=== PATIENT | female | born 1965 | race Caucasian/White ===

== ENCOUNTER → 2016-10-10 | Outpatient (CLI) | payer OTHER ==
[~2016-10-10] MED LIST: CLARITIN 1010 MG/TAB PO; MOTRIN 800800 MG/TAB PO; PERCOCET 325 MG1 TA2 PO; PRILOSEC 20MG20 MG PO
[2016-10-10 12:08] LABS: PH 5 (5-8); SQUAMOUS EPITHELIAL 0-2 /hpf; URINE APPEARANCE Clear; URINE BACTERIA None Seen /hpf; URINE BILIRUBIN Negative (NEGATIVE); URINE BLOOD Negative (NEGATIVE); URINE COLOR Yellow; URINE GLUCOSE Negative (NEGATIVE); URINE KETONE Negative (NEGATIVE); URINE RBC 0-2 /hpf; URINE UROBILINOGEN Negative (NEGATIVE); URINE WBC 0-2 /hpf
[2016-10-10 12:11] LABS: BASO # 0.1 (0.0-0.2); BASO % 0.8 % (0.0-2.0); EOS # 0.2 (0.0-0.7); EOS % 2.4 % (0-4.0); GRAN # 4.7 (1.4-6.5); GRAN % 64.7 % (42.2-75.2); HEMATOCRIT 38.8 % (37.0-47.0); LYMPH # 1.9 (1.2-3.4); MEAN CELL VOLUME 79 fl (80.0-100.0); MEAN CORPUSCULAR HEMOGLOBIN 24 pg (27.0-31.0); MEAN CORPUSCULAR HGB CONC 31 g/dl (33.0-37.0); MEAN PLATELET VOLUME 11.5 fl (7.4-10.4); MONO # 0.4 (0.1-0.6); MONO % 5.8 % (1.7-9.3); PLATELET COUNT 272 K/mm3 (130-400); RED BLOOD COUNT 4.89 M/mm3 (4.10-5.30); REDCELL DISTRIBUTION WIDTH-CV 17.3 % (11.5-14.5); WHITE BLOOD COUNT 7.2 K/mm3 (4.8-10.8)
[2016-10-10 12:16] LABS: HEMOGLOBIN 11.9 g/dl (12.5-16.0)
[2016-10-10 12:45] LABS: ADJUSTED CALCIUM 8.9 mg/dL (8.4-10.2); ALBUMIN 4.3 gm/dL (3.5-5.0); BILIRUBIN,TOTAL 0.5 mg/dL (0.0-1.0); CALCIUM 9.1 mg/dL (8.4-10.2); CREATININE, serum 0.7 mg/dL (0.52-1.25); POTASSIUM 3.9 mmol/L (3.4-5.0); TOTAL PROTEIN 7.7 gm/dL (6.4-8.2)
[2016-10-10 13:13] LABS: THYROID STIMULATING HORMONE 1.85 uIU/mL (0.465-4.680)
== END ==
LOC: COL.LAB 10:00
PROVIDERS: Internal Medicine
DX: G47.33 Obstructive sleep apnea (adult) (pediatric) (principal); R35.0 Frequency of micturition

== ENCOUNTER → 2016-10-17 | Outpatient (CLI) | payer OTHER | LOC: COL.RAD 13:59 | DX: N83.201 Unspecified ovarian cyst, right side (principal); Z90.711 Acquired absence of uterus with remaining cervical stump ==

== ENCOUNTER → 2017-01-08 | Outpatient (CLI) | payer OTHER ==
[~2017-01-08] VITALS: Ht 170.2 cm; Wt 120.9 kg
[2017-01-08 15:30] VITALS: BP 160/100; PULSE 76
== END ==
LOC: LIGHT 09:21
DX: E66.01 Morbid (severe) obesity due to excess calories (principal); Z68.41 Body mass index [BMI] 40.0-44.9, adult; Z71.3 Dietary counseling and surveillance; I10 Essential (primary) hypertension; K21.9 Gastro-esophageal reflux disease without esophagitis

== ENCOUNTER 2017-01-18 06:56 | Day surgery (SDC) | payer OTHER ==
[~2017-01-18] VITALS: Ht 170.2 cm; Wt 121.7 kg
[2017-01-18 07:14] VITALS: BP 136/98; PULSE 76; TEMP 98.1
[2017-01-18 09:20] VITALS: BP 142/90; PULSE 76
[2017-01-18 09:30] VITALS: BP 137/90; PULSE 71
[2017-01-18 09:45] VITALS: BP 129/87; PULSE 75
[2017-01-18 10:00] VITALS: BP 122/89
[2017-01-18 12:57] VITALS: BP 135/87; PULSE 79
== END 2017-01-18 10:00 | disposition home or self-care (01) ==
LOC: SDCO 06:56
DX: K21.0 Gastro-esophageal reflux disease with esophagitis (principal); K63.5 Polyp of colon; D50.9 Iron deficiency anemia, unspecified; I10 Essential (primary) hypertension; K62.5 Hemorrhage of anus and rectum; Z90.710 Acquired absence of both cervix and uterus; Z90.49 Acquired absence of other specified parts of digestive tract; Z80.0 Family history of malignant neoplasm of digestive organs
CPT/HCPCS: J2250; J2405; J3010; J7030

== ENCOUNTER → 2017-01-21 | Outpatient (CLI) | payer OTHER ==
[~2017-01-21] VITALS: Ht 170.2 cm; Wt 120.9 kg
== END ==
LOC: LIGHT 14:40
DX: Z01.818 Encounter for other preprocedural examination (principal)

== ENCOUNTER → 2017-01-29 | Outpatient (CLI) | payer OTHER ==
[~2017-01-29] VITALS: Ht 170.2 cm; Wt 121.3 kg
[2017-01-29 14:47] VITALS: BP 150/96; PULSE 64
== END ==
LOC: LIGHT 14:04
DX: E66.01 Morbid (severe) obesity due to excess calories (principal); Z68.41 Body mass index [BMI] 40.0-44.9, adult; Z71.3 Dietary counseling and surveillance; I10 Essential (primary) hypertension; K21.9 Gastro-esophageal reflux disease without esophagitis

== ENCOUNTER → 2017-02-11 | Outpatient (CLI) | payer OTHER | LOC: LIGHT 14:47 | DX: Z01.818 Encounter for other preprocedural examination (principal) ==

== ENCOUNTER → 2017-02-26 | Outpatient (CLI) | payer OTHER ==
[~2017-02-26] VITALS: Ht 170.2 cm; Wt 119.7 kg
[2017-02-26 16:19] VITALS: BP 170/108; PULSE 68
== END ==
LOC: LIGHT 09:10
DX: E66.01 Morbid (severe) obesity due to excess calories (principal); Z68.41 Body mass index [BMI] 40.0-44.9, adult; Z71.3 Dietary counseling and surveillance; I10 Essential (primary) hypertension; K21.9 Gastro-esophageal reflux disease without esophagitis

== ENCOUNTER → 2017-04-30 | Outpatient (CLI) | payer OTHER | LOC: MC.RAD 14:47 | DX: Z12.31 Encounter for screening mammogram for malignant neoplasm of breast (principal) ==

== ENCOUNTER → 2017-07-02 | Outpatient (REF) | LOC: WSOH 15:52 → WSPT 15:52 | DX: Z51.89 Encounter for other specified aftercare (principal) ==

== ENCOUNTER → 2018-06-10 | Outpatient (CLI) | payer OTHER | LOC: MC.RAD 08:49 | DX: Z12.31 Encounter for screening mammogram for malignant neoplasm of breast (principal) ==

== ENCOUNTER 2019-05-08 06:04 | Day surgery (SDC) | payer OTHER, BC ==
[~2019-05-08] VITALS: Ht 170.2 cm; Wt 116.5 kg
[2019-05-08 06:28] VITALS: BP 128/89; PULSE 65; TEMP 98.4
[2019-05-08] MEDS ORDERED: COZAAR 50MG50 MG/TAB PO (06:28)
[2019-05-08 06:57] LABS: BASO # 0.1 (0.0-0.2); BASO % 0.8 % (0.0-2.0); EOS # 0.2 (0.0-0.7); EOS % 3.1 % (0-4.0); GRAN # 4.7 (1.4-6.5); GRAN % 62.8 % (42.2-75.2); HEMATOCRIT 42.7 % (37.0-47.0); HEMOGLOBIN 14.1 g/dl (12.5-16.0); LYMPH % 26.2 % (20.0-51.0); MEAN CELL VOLUME 88 fl (80.0-100.0); MEAN CORPUSCULAR HEMOGLOBIN 29 pg (27.0-31.0); MEAN CORPUSCULAR HGB CONC 33 g/dl (33.0-37.0); MEAN PLATELET VOLUME 10.7 fl (7.4-10.4); MONO # 0.5 (0.1-0.6); PLATELET COUNT 225 K/mm3 (130-400); RED BLOOD COUNT 4.83 M/mm3 (4.10-5.30); REDCELL DISTRIBUTION WIDTH-CV 12.5 % (11.5-14.5)
[2019-05-08 07:11] LABS: ALBUMIN 4.5 gm/dL (3.5-5.0); BILIRUBIN,TOTAL 0.7 mg/dL (0.0-1.0); CALCIUM 9.4 mg/dL (8.4-10.2); CHOLESTEROL RISK RATIO 3.7; CREATININE, serum 0.79 (0.52-1.25); TOTAL PROTEIN 7.8 gm/dL (6.4-8.2)
[2019-05-08 07:30] VITALS: BP 137/92; PULSE 69; TEMP 97.7
[2019-05-08 07:40] LABS: THYROID STIMULATING HORMONE 3.01 uIU/mL (0.465-4.680)
[2019-05-08 07:45] VITALS: BP 127/86; PULSE 75
[2019-05-08 08:00] VITALS: BP 125/82; PULSE 69
--- NOTE | 2019-05-08 09:00 | NUR ---
PT RETURNED FROM ENDO SUITE INTO BAY#1. PT AROUSES TO NAME, SLEEPY HOWEVER, ALERT AND ORIENTATED X3. DAUGHTER PRESENT IN ROOM. PT DENIES PAIN, NAUSEA. LUNGS CLEAR, HRR, BOWEL SOUNDS HYPO ACTIVE. REQUESTS SODA AND CRACKERS. VSS, AFEBRILE, WILL CONT TO MONITOR PROGRESS.
--- NOTE | 2019-05-08 09:04 | NUR ---
PT TOLERATING CRACKERS AND FLUIDS, VS REMAIN STABLE. STATES FEELING,' ALITTLE MORE QUEEZY'. STATES WANTING TO JUST GO HOME AND 'SLEEP IT OFF'. DENIES WANTING ANYTHING FOR NAUSEA. WILL CONT TO MONITOR.
--- NOTE | 2019-05-08 09:07 | NUR ---
PT CONT IS TOLERATING FOOD AND FLUIDS. VSS. DISCHARGE INSTRUCTIONS GIVEN, PT SIGNED AND VOICES UNDERSTANDING. IV REMOVED PER RIGHT WRIST WITHOUT DIFFICULTY. PT DISCHARGED PER WC TO FAMILY VEHICLE, DAUGHTER DRIVING.
== END 2019-05-08 08:15 | disposition home or self-care (01) ==
LOC: SDCO 06:04
PROVIDERS: Internal Medicine
DX: K21.9 Gastro-esophageal reflux disease without esophagitis (principal); K22.70 Barrett's esophagus without dysplasia; E66.01 Morbid (severe) obesity due to excess calories; J30.2 Other seasonal allergic rhinitis; I10 Essential (primary) hypertension; D50.9 Iron deficiency anemia, unspecified; Z80.0 Family history of malignant neoplasm of digestive organs; Z90.710 Acquired absence of both cervix and uterus; Z90.49 Acquired absence of other specified parts of digestive tract
CPT/HCPCS: J2250; J3010; J7030

== ENCOUNTER → 2019-07-24 | Outpatient (CLI) | payer BC ==
[~2019-07-24] MED LIST changes: +COZAAR 50MG50 MG/TAB PO
== END ==
LOC: MC.RAD 08:18
DX: Z12.31 Encounter for screening mammogram for malignant neoplasm of breast (principal)

== ENCOUNTER → 2020-07-18 | Outpatient (CLI) | payer BC ==
[~2020-07-18] MED LIST changes: +HYZAAR 50-12.1 UDTAB PO; +NEXIUM 20MG20 MG PO; +NORCO 325 MG-51 TAB PO
[2020-07-18 12:08] LABS: BASO # 0.1 (0.0-0.2); BASO % 0.9 % (0.0-2.0); EOS # 0.2 (0.0-0.7); EOS % 3.5 % (0-4.0); GRAN # 4.1 (1.4-6.5); GRAN % 59.4 % (42.2-75.2); HEMATOCRIT 44.6 % (37.0-47.0); HEMOGLOBIN 14.4 g/dl (12.5-16.0); LYMPH # 2.1 (1.2-3.4); LYMPH % 30.8 % (20.0-51.0); MEAN CELL VOLUME 91 fl (80.0-100.0); MEAN CORPUSCULAR HEMOGLOBIN 29 pg (27.0-31.0); MEAN CORPUSCULAR HGB CONC 32 g/dl (33.0-37.0); MEAN PLATELET VOLUME 11.6 fl (7.4-10.4); MONO # 0.4 (0.1-0.6); MONO % 5.1 % (1.7-9.3); PLATELET COUNT 207 K/mm3 (130-400); RED BLOOD COUNT 4.91 M/mm3 (4.10-5.30); REDCELL DISTRIBUTION WIDTH-CV 12.4 % (11.5-14.5)
[2020-07-18 12:20] LABS: ALBUMIN 4.5 gm/dL (3.5-5.0); BILIRUBIN,TOTAL 0.5 mg/dL (0.0-1.0); CALCIUM 9.5 mg/dL (8.4-10.2); CHOLESTEROL RISK RATIO 3.2; CREATININE, serum 0.72 (0.52-1.25); TOTAL PROTEIN 7.6 gm/dL (6.4-8.2)
[2020-07-18 12:49] LABS: THYROID STIMULATING HORMONE 1.83 uIU/mL (0.465-4.680)
== END ==
LOC: COL.LAB 11:26
PROVIDERS: Internal Medicine
DX: I10 Essential (primary) hypertension (principal)

== ENCOUNTER → 2020-07-19 | Outpatient (CLI) | payer BC | LOC: MC.RAD 11:08 | DX: R92.0 Mammographic microcalcification found on diagnostic imaging of breast (principal) ==

== ENCOUNTER → 2020-07-20 | Outpatient (CLI) | payer BC | LOC: MC.RAD 11:30 | DX: N60.92 Unspecified benign mammary dysplasia of left breast (principal); R92.0 Mammographic microcalcification found on diagnostic imaging of breast; Z98.82 Breast implant status ==

== ENCOUNTER → 2020-07-29 | Outpatient (CLI) | payer BC | LOC: COL.CARD | DX: I49.9 Cardiac arrhythmia, unspecified (principal); R00.8 Other abnormalities of heart beat ==

== ENCOUNTER 2020-08-10 10:02 | Day surgery (SDC) | payer BC ==
[~2020-08-10] VITALS: Ht 170.2 cm; Wt 112.2 kg
[~2020-08-10 10:02] MED LIST changes: -HYZAAR 50-12.1 UDTAB PO; -NEXIUM 20MG20 MG PO; -NORCO 325 MG-51 TAB PO
[2020-08-10 12:37] VITALS: BP 130/81; PULSE 82; TEMP 98.2
[2020-08-10] MEDS ORDERED: HYZAAR 50-12.1 UDTAB PO (12:47)
[2020-08-10] MEDS ORDERED: CLARITIN 1010 MG/TAB PO (12:48)
[2020-08-10] MEDS ORDERED: NEXIUM 20MG20 MG PO (12:48)
[2020-08-10 14:37] VITALS: BP 103/65; PULSE 81; TEMP 97.6
--- NOTE | 2020-08-10 14:37 | NUR ---
Pt bay 1 via cart from OR. Pt alert and oriented. Denies pain, n/v. Dressing to left breast clean, dry, and intact. Sprite given per request. at bedside. Side rails up, call light within reach.
[2020-08-10] MEDS ORDERED: NORCO 325 MG-51 TAB PO (14:45)
[2020-08-10 14:52] VITALS: BP 97/51; PULSE 81
--- NOTE | 2020-08-10 14:52 | NUR ---
Pt resting in bed. Requests to use restroom. Ambulates with stand by assist to restroom without difficulty. Pt voids large amounts without difficulty. Pt back to room, sitting at side of bed. Call light within reach. Warm blankets provided.
[2020-08-10 15:07] VITALS: BP 106/81; PULSE 72
--- NOTE | 2020-08-10 15:07 | NUR ---
IV site noted to be infiltrated. No redness present. IV site discontinued. Warm compress applied. Leandro [employer]PUTER [employer]ST[employer]ATION [employer]INEER notified, no new orders given. Pt provided jello and second Sprite.
[2020-08-10 15:22] VITALS: BP 129/91; PULSE 80
--- NOTE | 2020-08-10 15:22 | NUR ---
Pt resting in bed. Ate jello and drank sprite without difficulty. Denies further needs at this time. Call light in reach.
[2020-08-10 15:37] VITALS: BP 112/73; PULSE 78
--- NOTE | 2020-08-10 15:37 | NUR ---
Warm compress removed from right arm. IV infiltration decreased slightly. Discharge instructions provided. Pt and spouse verbalize understanding. Deny further questions or complaints.
--- NOTE | 2020-08-10 16:00 | NUR ---
Pt escorted out of building via wheel chair, accompanied by . All belongings sent home with patient.
== END 2020-08-10 16:00 | disposition home or self-care (01) ==
LOC: SDCO 10:02
DX: N60.92 Unspecified benign mammary dysplasia of left breast (principal); I10 Essential (primary) hypertension; G47.30 Sleep apnea, unspecified; Z20.822 Contact with and (suspected) exposure to COVID-19; Z80.3 Family history of malignant neoplasm of breast
CPT/HCPCS: A4648; J0690; J2704; J7120

== ENCOUNTER → 2020-08-17 | Outpatient (CLI) | payer BC ==
[~2020-08-17] MED LIST changes: +HYZAAR 50-12.1 UDTAB PO; +NEXIUM 20MG20 MG PO; +NORCO 325 MG-51 TAB PO
== END ==
LOC: COL.VAS 07:16
DX: I49.3 Ventricular premature depolarization (principal); K31.89 Other diseases of stomach and duodenum

== ENCOUNTER → 2021-08-31 | Outpatient (CLI) | payer BC | LOC: MC.RAD 12:45 | DX: Z12.31 Encounter for screening mammogram for malignant neoplasm of breast (principal) ==

== ENCOUNTER → 2023-10-16 | Outpatient (CLI) | payer OTHER | LOC: MC.RAD 10:00 | DX: Z12.31 Encounter for screening mammogram for malignant neoplasm of breast (principal) ==